=== PATIENT | female | born 1965 | race Caucasian/White ===

== ENCOUNTER → 2017-02-24 | Outpatient (CLI) | payer BC ==
--- NOTE | 2017-02-24 16:45 | RAD ---
Right hip, 2 views, 02/24/2017: History: Hip pain No fracture or dislocation is identified. The hip joint space is well-preserved. The periarticular soft tissues are unremarkable. IMPRESSION: No significant right hip abnormality is detected.
== END | disposition home or self-care (01) ==
LOC: DXRAD 15:44
PROVIDERS: ATTEND Family Medicine
DX: M25.551 Pain in right hip (principal)
CPT/HCPCS: 73502